=== PATIENT | female | born 1950 | race Caucasian/White ===

== ENCOUNTER 2016-09-27 19:40 | Emergency (ER) | payer MEDICARE, OTHER | END 2016-09-27 21:05 | disposition home or self-care (01) | LOC: FER 19:40 | DX: L55.9 Sunburn, unspecified (principal); T78.40XA Allergy, unspecified, initial encounter; H60.92 Unspecified otitis externa, left ear; I10 Essential (primary) hypertension; E03.9 Hypothyroidism, unspecified; Z88.0 Allergy status to penicillin; Z79.899 Other long term (current) drug therapy | CPT/HCPCS: J1100 ==